=== PATIENT | male | born 1995 | race African-American/Black ===

== ENCOUNTER 2017-09-28 19:20 | Emergency (ER) | payer OTHER ==
[~2017-09-28] VITALS: Ht 175.3 cm; Wt 67.0 kg
[~2017-09-28 19:20] MED LIST: AZIT500T2 PO
[2017-09-28 19:36] VITALS: BP 120/57; PULSE 61; RESP 18; TEMP 98.4; O2SAT 99
== END 2017-09-28 20:24 | disposition left against medical advice (07) ==
LOC: NED 19:20
DX: Z53.21 Procedure and treatment not carried out due to patient leaving prior to being seen by health care provider (principal)
CPT/HCPCS: 99281

== ENCOUNTER 2017-10-19 19:38 | Emergency (ER) | payer SELFPAY ==
[~2017-10-19] VITALS: Ht 175.3 cm; Wt 68.0 kg
[2017-10-19 19:46] VITALS: BP 133/63; PULSE 64; RESP 16; TEMP 98.4; O2SAT 100
--- NOTE | 2017-10-19 22:42 | PD ---
HPI Chief Complaint: Medical Clearance Time Seen by Provider: 22:40 Travel History International Travel<30 days: No Contact w/Intl Traveler<30days: No Traveled to known affect area: No History of Present Illness HPI Patient went [facility] where he was tested for gonorrhea and chlamydia and was told that he was negative for both. However the patient comes in complaining of a discharge from his penis, that is clear but has a fishy odor. AND IS SOMETIMES THICK DISCHARGE THAT IS WHITE TO YELLOWISH. No known drug allergies Past medical history significant only for asthma during childhood. PFSH Past Medical History Asthma: Yes (POSSIBLE) Immunizations Current: No Tetanus Vaccination: Unknown Influenza Vaccination: No Past Surgical History Surgical History: No Previous Surgery Social History Alcohol Use: Yes (OCC) Tobacco Use: No Substance Use: No Allergies-Medications (Allergen,Severity, Reaction): Coded Allergies: No Known Allergies (Unverified Adverse Reaction, Unknown, 10/19/17) Reported Meds & Prescriptions Reported Meds & Active Scripts Active Review of Systems Except as stated in HPI: all other systems reviewed are Neg General / Constitutional: No: Fever Eyes: No: Visual changes HENT: No: Headaches Cardiovascular: No: Chest Pain or Discomfort Respiratory: No: Shortness of Breath Gastrointestinal: No: Abdominal Pain Genitourinary: Positive: Discharge, Other Musculoskeletal: No: Pain Skin: No Rash Neurologic: No: Weakness Psychiatric: No: Depression Endocrine: No: Polydipsia Hematologic/Lymphatic: No: Easy Bruising Physical Exam Narrative GENERAL: SKIN: Warm and dry. HEAD: Atraumatic. Normocephalic. EYES: Pupils equal and round. No scleral icterus. No injection or drainage. ENT: No nasal bleeding or discharge. Mucous membranes pink and moist. NECK: Trachea midline. No JVD. CARDIOVASCULAR: Regular rate and rhythm. RESPIRATORY: No accessory muscle use. Clear to auscultation. Breath sounds equal bilaterally. GASTROINTESTINAL: Abdomen soft, non-tender, nondistended.URETHRAL DC NOTED, NO LAD, NO ULCERS MUSCULOSKELETAL: Extremities without clubbing, cyanosis, or edema. No obvious deformities. NEUROLOGICAL: Awake and alert. No obvious cranial nerve deficits. Motor grossly within normal limits. Five out of 5 muscle strength in the arms and legs. Normal speech. PSYCHIATRIC: Appropriate mood and affect; insight and judgment normal. Data Data Last Documented VS Vital Signs Date Time Temp Pulse Resp B/P (MAP) Pulse Ox O2 Delivery O2 Flow Rate FiO2 10/19/17 19:46 98.4 64 16 133/63 (86) 100 Room Air MDM Medical Decision Making Medical Screen Exam Complete: Yes Emergency Medical Condition: Yes Medical Record Reviewed: Yes Differential Diagnosis Gonorrhea versus chlamydia versus bacterial infection versus trichomonas Narrative Course Patient was given information about the follow-up on the outreach clinic located at [address] [place] [address] in [place] Diagnosis Primary Impression: Urethritis Additional Instructions: follow-up on the outreach clinic located at [address] [place] [address] in [place] [id number] PHONE# [phone] Disposition: 01 DISCHARGE HOME Condition: Stable Kiran Kelly MD Oct 19, 2017 22:42
[2017-10-19] MEDS ORDERED: cefTRIAXone 250 MG VIAL IM ONE (23:00)
[2017-10-19] MEDS ORDERED: metroNIDAZOLE 500 MG TAB PO ONE (23:00)
[2017-10-19] MEDS ORDERED: AZITHROMYCIN 250 MG TAB PO ONE (23:00)
== END 2017-10-20 00:09 | disposition home or self-care (01) ==
LOC: NEPD 19:38
DX: N34.2 Other urethritis (principal)
CPT/HCPCS: 99283; J0696